=== PATIENT | female | born 1985 | race Native Hawaiian/Other Pacific Islander ===

== ENCOUNTER 2018-12-01 09:28 | Outpatient (CLI) | payer OTHER | END 2018-12-01 21:55 | disposition home or self-care (01) | LOC: RAD 09:28 | DX: M54.2 Cervicalgia (principal) ==

== ENCOUNTER 2018-12-07 11:28 | Outpatient (CLI) | payer OTHER | END 2018-12-07 20:39 | disposition home or self-care (01) | LOC: CT 11:28 | DX: R51 Headache (principal) ==